=== PATIENT | male | born 1990 | race Caucasian/White ===

== ENCOUNTER 2019-06-22 14:54 | Emergency (ER) | payer MEDICAID ==
--- NOTE | 2019-06-22 15:22 | Emergency Department Record ---
History of Present Illness - General Chief complaint: Eye Problem Stated complaint: L EYE RED Time Seen by Provider: 06/22/19 15:11 Source: Patient, Family (Caregiver from [facility] - Crista) Mode of Arrival: Ambulatory Limitations: Other (custodial resident - provides good hx with assist of Crista caregiver) - History of Present Illness Initial comments: Pt to ED with Crista a caregiver from his [facility] with complaint of one day of red eye on the left. No trauma or injury, no contacts. No recent illness, fever, or visual change. No discharge. No known contact. Onset/Timin -: Days(s) Onset Description: Gradual Location: Left eye Place: Home - Related Data Home Medications Medication Instructions Recorded Confirmed Last Taken Buspirone HCl [Buspar] 15 mg PO DAILY 06/22/19 06/22/19 06/22/19 Cholecalciferol (Vitamin D3) 1 each PO DAILY 06/22/19 06/22/19 06/22/19 [Vitamin D3] Montelukast Sodium 10 mg PO DAILY 06/22/19 06/22/19 06/21/19 Risperidone [Risperadol] 1 mg PO ASDIR 06/22/19 06/22/19 06/22/19 Allergies Allergy/AdvReac Type Severity Reaction Status Date / Time No Known Drug Allergies Allergy Verified 06/22/19 15:00 Travel Screening - Travel/Exposure Within Last 30 Days Have you traveled within the last 30 days?: No - Travel/Exposure Within Last Year Have you traveled outside the [place] in the last year?: No - Additonal Travel Details Have you been exposed to anyone with a communicable illness?: No - Travel Symptoms Symptom Screening: None Review of Systems Constitutional: Denies: Chills, Fever Eyes: Reports: As per HPI ENT: Denies: Congestion Respiratory: Denies: Cough Cardiovascular: Denies: Chest pain Endocrine: Denies: Fatigue Gastrointestinal: Denies: Abdominal pain Skin: Denies: Bruising, Rash Neurological: Denies: Headache Psychiatric: Denies: Anxiety Hematological/Lymphatic: Denies: Anemia Past Medical History - SOCIAL HISTORY Smoking Status: Never smoker Alcohol Use: None Drug Use: None - RESPIRATORY Hx Respiratory Disorders: No - CARDIOVASCULAR Hx Cardio Disorders: No - NEURO Hx Neuro Disorders: No - GI Hx GI Disorders: No - Hx Genitourinary Disorders: No - ENDOCRINE Hx Endocrine Disorders: No - MUSCULOSKELETAL Hx Musculoskeletal Disorders: No - PSYCH Hx Psych Problems: Yes Comment:: Developmentally disabled - HEMATOLOGY/ONCOLOGY Hx Hematology/Oncology Disorders: No Family Medical History Any Significant Family History?: Yes Hx Diabetes: Father *Diabetes Comment: Type 2 Physical Exam - General General Appearance: Alert, Oriented x3, Cooperative, No acute distress - Head Head exam: Normal inspection - Eye Eye exam: PERRL, Conjunctival injection (left eye injected with out discharge, anterilr chamber clear. ) - ENT ENT exam: Mucous membranes moist Ear exam: Normal external inspection Nasal Exam: Normal inspection Mouth exam: Normal external inspection - Neck Neck exam: Normal inspection - Respiratory Respiratory exam: Normal lung sounds bilaterally. negative: Respiratory distress - Cardiovascular Cardiovascular Exam: Regular rate - GI/Abdominal GI/Abdominal exam: Soft. negative: Tenderness - Back Back exam: Reports: Normal inspection - Neurological Neurological exam: Alert, Normal gait. negative: Motor sensory deficit - Psychiatric Psychiatric exam: Normal affect, Normal mood - Skin Skin exam: Normal color Course Vital Signs 06/22/19 15:05 Temperature 98.3 F Pulse Rate 100 H Respiratory 20 Rate Blood Pressure 138/90 Pulse Ox 98 - Reevaluation(s) Reevaluation #1: 06/22/19 15:26 discussed care plan and eye drops. Caution with contacts and hand washing. Reevaluation #2: 06/22/19 15:30 Eye antibiotic drops provided to pt in ED. Disposition Disposition: Discharge Clinical Impression: Conjunctivitis Qualifiers: Conjunctivitis type: acute Acute conjunctivitis type: viral Laterality: left Qualified Code(s): B30.9 - Viral conjunctivitis, unspecified Disposition: Home, Self-Care Condition: (1) Good Instructions: Conjunctivitis (ED) Additional Instructions: frequent hand washing. Use eye drops for 6 days every 4 hours while awake Return to the ED as needed. Forms: Patient Portal Access Time of Disposition: 15:28 Quality - Quality Measures Quality Measures: N/A - Blood Pressure Screening Does Patient Have Any of the Following: No Blood Pressure Classification: Hypertensive Reading Systolic Measurement: 138 Diastolic Measurement: 90 Screening for High Blood Pressure: < Pre-Hypertensive BP, F/U Documented > [[id number]] Pre-Hypertensive Follow-up Interventions: Follow-up with rescreen every year.
[2019-06-22] MEDS ORDERED: TOBRAMYCIN OPTH SCH (15:30)
[2019-06-22] MEDS ORDERED: DEXAMETHASONE OPTH SCH (15:30)
[2019-06-22] MEDS ORDERED: SULFACETAMIDE SODIUM 15ML BTL OPTH ONE (15:31)
== END 2019-06-22 15:35 | disposition home or self-care (01) ==
LOC: ER 14:54
DX: B30.9 Viral conjunctivitis, unspecified (principal)
CPT/HCPCS: 99283